=== PATIENT | female | born 1995 ===

== ENCOUNTER 2021-06-29 09:21 | Emergency (ER) | payer OTHER ==
[~2021-06-29] VITALS: Ht 160 cm; Wt 104.2 kg
--- NOTE | 2021-06-29 09:40 | ED GU-Female ---
General Chief Complaint: OB < 20 WEEKS Stated Complaint: CRAMPING/VAG BLEEDING 3 WKS PREG Source: patient Exam Limitations: no limitations History of Present Illness Date Seen by Provider: Jun 29, 2021 Time Seen by Provider: 09:40 Initial Comments Patient is a 25-year-old female 2 para 1 who presents to the emergency department today with a chief complaint of lower abdominal cramping, right-sided pelvic cramping vaginal spotting over the course of the last week and vaginal bleeding this morning. Patient states that the first day of her last normal menstrual period was June 05. She took a home test on the . She states that her was confirmed last Thursday at [facility]. Patient is not on any daily prescribed medications. Last delivery was summer 2017. She delivered via that is her only abdominal surgery. Patient denies any recent fevers, chills, nausea vomiting or diarrhea. She states she did have a little nausea yesterday. No burning with urination or abnormal vaginal discharge. No Covid concerns. No diarrhea. All other review of systems reviewed and negative except as stated. Timing/Duration: week Severity/Quality: cramping Location: suprapubic (right side) Activities at Onset: none Prior Genitourinary Problems: none Associated Symptoms: abdominal pain (suprapubic abdominal discomfort) Allergies and Home Medications Allergies Coded Allergies: amoxicillin (Verified Allergy, Unknown, 06/29/21) Patient Home Medication List Home Medication List Reviewed: Yes Review of Systems Review of Systems Constitutional: see HPI EENTM: no symptoms reported Respiratory: no symptoms reported Cardiovascular: no symptoms reported Gastrointestinal: abdominal pain Genitourinary: other (vagonal bleeding) : Yes LMP: Jun 05, 2021 Musculoskeletal: no symptoms reported Skin: no symptoms reported Psychiatric/Neurological: No Symptoms Reported All Other Systemes Reviewed Negative Unless Noted: Yes Physical Exam Vital Signs Vital Signs - First Documented 06/29/21 09:40 Temp 36.1 Pulse 82 Resp 18 B/P (MAP) 110/72 (85) Pulse Ox 99 Capillary Refill : Height, Weight, BMI Height: '" Weight: lbs. oz. kg; BMI Method: General Appearance: WD/WN, no apparent distress HEENT: PERRL/EOMI Neck: full range of motion, normal inspection Cardiovascular: regular rate, rhythm Respiratory: lungs clear, normal breath sounds, no respiratory distress, no accessory muscle use Gastrointestinal: soft, tenderness (very mild right sided low abdominal tenderness) Extremities: normal range of motion, non-tender, normal inspection, no pedal edema, normal capillary refill Neurologic/Psychiatric: alert, normal mood/affect, oriented x 3 Skin: normal color, warm/dry Progress/Results/Core Measures Suspected Sepsis SIRS Temperature: Pulse: Respiratory Rate: Laboratory Tests 06/29/21 10:00: White Blood Count 12.0H Blood Pressure / Mean: Laboratory Tests 06/29/21 10:00: Platelet Count 299 Results/Orders Lab Results Laboratory Tests Test 06/29/21 09:45 06/29/21 10:00 Range/Units Urine Color RED H Urine Clarity CLOUDY Urine pH 8.0 5-9 Urine Specific [place] 1.015 L 1.016-1.022 Urine Protein 1+ H NEGATIVE Urine Glucose (UA) NEGATIVE NEGATIVE Urine Ketones NEGATIVE NEGATIVE Urine Nitrite NEGATIVE NEGATIVE Urine Bilirubin NEGATIVE NEGATIVE Urine Urobilinogen 0.2 < = 1.0 MG/DL Urine Leukocyte Esterase TRACE H NEGATIVE Urine RBC (Auto) 3+ H NEGATIVE Urine RBC TNTC H /HPF Urine WBC 0-2 /HPF Urine Crystals NONE /LPF Urine Bacteria NEGATIVE /HPF Urine Casts NONE /LPF Urine Mucus NEGATIVE /LPF Urine Culture Indicated NO White Blood Count 12.0 H 4.3-11.0 10^3/uL Red Blood Count 4.46 3.80-5.11 10^6/uL Hemoglobin 12.3 11.5-16.0 g/dL Hematocrit 37 35-52 % Mean Corpuscular Volume 84 80-99 fL Mean Corpuscular Hemoglobin 28 25-34 pg Mean Corpuscular Hemoglobin Concent 33 32-36 g/dL Red Cell Distribution Width 14.4 10.0-14.5 % Platelet Count 299 130-400 10^3/uL Mean Platelet Volume 11.6 9.0-12.2 fL Immature Granulocyte % (Auto) 0 % Neutrophils (%) (Auto) 64 42-75 % Lymphocytes (%) (Auto) 25 12-44 % Monocytes (%) (Auto) 7 0-12 % Eosinophils (%) (Auto) 3 0-10 % Basophils (%) (Auto) 0 0-10 % Neutrophils # (Auto) 7.7 1.8-7.8 10^3/uL Lymphocytes # (Auto) 2.9 1.0-4.0 10^3/uL Monocytes # (Auto) 0.9 0.0-1.0 10^3/uL Eosinophils # (Auto) 0.4 H 0.0-0.3 10^3/uL Basophils # (Auto) 0.1 0.0-0.1 10^3/uL Immature Granulocyte # (Auto) 0.0 0.0-0.1 10^3/uL Human Chorionic Gonadotropin, Quant < 5 <5 MIU/ML My Orders Orders - ANNA PACHECO MD Cbc With Automated Diff (06/29/21 09:50) Abo Rh Type (06/29/21 09:50) Ua Culture If Indicated (06/29/21 09:50) Hcg,Quantitative (06/29/21 09:50) Ibuprofen Tablet (Motrin Tablet) (06/29/21 11:00) Vital Signs/I&O 06/29/21 09:40 Temp 36.1 Pulse 82 Resp 18 B/P (MAP) 110/72 (85) Pulse Ox 99 Capillary Refill : Progress Note : Time: 10:51 Progress Note Patient's Quantitative Hcg is <5 today indicating either possibly a false positive earlier, or miscarriage last week and quant decreased over the week to negative. Will give her a dose of Ibuuprofen here for her cramping. Recommended a routine follow up with [facility] and waiting 3 normal menstrual cycles before trying again to conceive. All questions sought and answered. Departure Impression Primary Impression: Vaginal bleeding Disposition: HOME, SELF-CARE Condition: Stable Departure-Patient Inst. Decision time for Depature: 10:53 Referrals: [facility] (PCP/Family) Primary Care Physician Patient Instructions: Menstrual Cramps (DC) Add. Discharge Instructions: Wait three normal cycles before trying to get again. You can take over the counter Ibuprofen 2-3 tablets (400-600mg) every 6 hours as needed for cramping/pain. Return to the ER for re-evaluation if you have heavy bleeding associated with shortness of breath, dizziness, worse pain, fever or any other emergent, concerning symptoms. Copy Copies To 1: MARLENY MOLINA KATHRYN M MD Jun 29, 2021 09:40
[2021-06-29 10:15] LABS: BILIRUBIN,URINE NEGATIVE (NEGATIVE); CLARITY,URINE CLOUDY; COLOR,URINE RED; GLUCOSE, URINE (UA) NEGATIVE (NEGATIVE); KETONES,URINE NEGATIVE (NEGATIVE); LEUKOCYTE ESTERASE ,URINE TRACE (NEGATIVE); NITRITE,URINE NEGATIVE (NEGATIVE); PROTEIN,URINE 1+ (NEGATIVE)
[2021-06-29 10:15] LABS: BASOPHILS # (AUTO) 0.1 10^3/uL (0.0-0.1); BASOPHILS % (AUTO) 0 % (0-10); EOSINOPHILS # (AUTO) 0.4 10^3/uL (0.0-0.3); EOSINOPHILS % (AUTO) 3 % (0-10); HEMATOCRIT 37 % (35-52); HEMOGLOBIN 12.3 g/dL (11.5-16.0); LYMPHOCYTES # (AUTO) 2.9 10^3/uL (1.0-4.0); LYMPHOCYTES % (AUTO) 25 % (12-44); MEAN CORPUSCULAR HEMOGLOBIN 28 pg (25-34); MEAN CORPUSCULAR HGB CONC 33 g/dL (32-36); MEAN CORPUSCULAR VOLUME 84 fL (80-99); MEAN PLATELET VOLUME 11.6 fL (9.0-12.2); MONOCYTES # (AUTO) 0.9 10^3/uL (0.0-1.0); MONOCYTES % (AUTO) 7 % (0-12); NEUTROPHILS # (AUTO) 7.7 10^3/uL (1.8-7.8); NEUTROPHILS % (AUTO) 64 % (42-75); PLATELET COUNT 299 10^3/uL (130-400)
[2021-06-29 10:24] LABS: BACTERIA,URINE NEGATIVE /HPF; RBC,URINE TNTC /HPF; WBC,URINE 0-2 /HPF
[2021-06-29] MEDS ORDERED: IBUPROFEN 600 MG (MOTRIN) TAB PO ONE (11:00)
[2021-06-29 11:05] VITALS: BP 107/64
== END 2021-06-29 11:04 | disposition home or self-care (01) ==
LOC: ER 09:25
DX: O20.9 Hemorrhage in early pregnancy, unspecified (principal); Z3A.01 Less than 8 weeks gestation of pregnancy
CPT/HCPCS: 36415; 81000; 84702; 85025; 86900; 86901